=== PATIENT | male | born 1975 ===

== ENCOUNTER → 2023-11-20 08:49 | Outpatient (REF) | payer SELFPAY | LOC: HWRAD 08:49 | PROVIDERS: FAMILY PHYSICIAN Family Medicine | DX: E78.5 Hyperlipidemia, unspecified (principal); Z85.89 Personal history of malignant neoplasm of other organs and systems; I10 Essential (primary) hypertension | CPT/HCPCS: 75571 ==

== ENCOUNTER → 2023-11-20 09:08 | Outpatient (REF) | payer BC, SELFPAY ==
[2023-11-20 13:03] LABS: ALT (SGPT) 34 U/L (0-50); AST (SGOT) 30 U/L (17-59); Albumin 4.9 g/dl (3.5-5.0); Alkaline Phosphatase 55 U/L (38-126); Direct Bilirubin 0.2 mg/dl (0.0-0.4); HDL Cholesterol 72 mg/dl; LDL Cholesterol, Calculated 142 mg/dl; Total Bilirubin 0.6 mg/dl (0.2-1.3); Total Cholesterol 259 mg/dl (50-199); Total Protein 7.4 g/dl (6.3-8.2); Triglyceride 229 mg/dl (10-149); Very Low Density Lipoprotein 45 mg/dl (0-30)
[2023-11-20 13:14] LABS: LDL Cholesterol, Direct 152 mg/dl
[2023-11-20 13:23] LABS: CRP, Highly Sensitive 2.48 mg/L
== END ==
LOC: HWLAB 09:08
PROVIDERS: FAMILY PHYSICIAN Family Medicine
DX: E78.5 Hyperlipidemia, unspecified (principal); I10 Essential (primary) hypertension
CPT/HCPCS: 36415; 80061; 80076; 83721; 86141